=== PATIENT | female | born 1950 | race Caucasian/White ===

== ENCOUNTER → 2017-01-10 | Outpatient (CLI) | payer BC ==
[~2017-01-10] MED LIST: EVS60 PO; LPTUNK; LRT5 PO; LXPUNK; ZNTUNK; [UNRECOGNIZED DRUG - OTHER]
--- NOTE | 2017-01-11 07:52 | MAMMOGRAPHY REPORT ---
BILATERAL DIGITAL SCREENING MAMMOGRAM WITH CAD: 01/10/2017 CLINICAL HISTORY: Routine screening. Patient has no complaints. TECHNIQUE: Current study was also evaluated with a Computer Aided Detection (CAD) system. Bilateral CC and MLO views were obtained. COMPARISON: Comparison is made to exams dated: 01/10/2016 mammogram, 01/21/2014 mammogram, 01/13/2013 mammogram, 12/11/2011 mammogram, 11/28/2010 mammogram - [facility], and 11/05/2007. BREAST COMPOSITION: The tissue of both breasts is heterogeneously dense, which may obscure small mas ses. FINDINGS: No suspicious masses, calcifications, or areas of architectural distortion are noted in ei ther breast. There has been no significant interval change compared to prior exams. IMPRESSION: ACR BI-RADS CATEGORY 1: NEGATIVE There is no mammographic evidence of malignancy. A 1 year screening mammogram is recommended. The pa tient will receive written notification of the results. Approximately 10% of breast cancers are not detected with mammography. A negative mammographic report should not delay biopsy if a clinically suggestive mass is present. Isatu Sawant M.D. /:01/10/2017 16:36:17 Community Organizer: Isabella BENAVIDES)([place]), [facility] letter sent: Normal 1/2 BI-RADS Code: ACR BI-RADS Category 1: Negative
== END | disposition home or self-care (01) ==
LOC: C.MAMM 16:09
PROVIDERS: ATTEND Family Medicine
DX: Z12.31 Encounter for screening mammogram for malignant neoplasm of breast (principal)